=== PATIENT | male | born 1990 | race Two or more races ===

== ENCOUNTER 2021-03-28 23:43 | Emergency (ER) | payer OTHER ==
[~2021-03-28] VITALS: Ht 175.3 cm; Wt 70.8 kg
[2021-03-29] MEDS ORDERED: ZOFRAN8 MG PO (06:39)
== END 2021-03-29 06:55 | disposition home or self-care (01) ==
LOC: ER 23:43
DX: R42 Dizziness and giddiness (principal); Z03.818 Encounter for observation for suspected exposure to other biological agents ruled out; R11.2 Nausea with vomiting, unspecified; R51.9 Headache, unspecified